=== PATIENT | male | born 1940 | race Native Hawaiian/Other Pacific Islander ===

== ENCOUNTER 2018-07-28 16:24 | Emergency (ER) | payer OTHER ==
[~2018-07-28] VITALS: Ht 182.9 cm; Wt 108.4 kg
[2018-07-28 17:14] LABS: PLATELET COUNT 103 K/uL (142-355)
[2018-07-28 17:26] LABS: POTASSIUM 4.1 mmol/L (3.6-5.2)
[2018-07-28 18:40] VITALS: BP 138/84; TEMP 98
[2018-07-29] MEDS ORDERED: CLOP75TA2 PO (01:32)
[2018-07-29] MEDS ORDERED: B121000 MCG PO (01:34)
[2018-07-29] MEDS ORDERED: MEMANTINE HCL10 MG PO (01:37)
[2018-07-29] MEDS ORDERED: LACTSYP31 PO (01:39)
[2018-07-29] MEDS ORDERED: LIPITOR40 MG PO (01:41)
[2018-07-29] MEDS ORDERED: CITA20TA2 PO (01:43)
[2018-07-29] MEDS ORDERED: PRIMIDONE50 M1 PO (01:45)
[2018-07-29] MEDS ORDERED: TAMS0.4C PO (01:46)
[2018-07-29] MEDS ORDERED: [UNRECOGNIZED DRUG - OTHER] EX (01:48)
== END 2018-07-28 18:40 | disposition other institution (70) ==
LOC: ED 16:24
PROVIDERS: Emergency Medicine
DX: F28 Other psychotic disorder not due to a substance or known physiological condition (principal); Z04.6 Encounter for general psychiatric examination, requested by authority
CPT/HCPCS: 36415; 80053; 81000; 85027; 93005; 99285